=== PATIENT | male | born 1990 | race Caucasian/White ===

== ENCOUNTER 2019-07-18 05:33 | Emergency (ER) | payer BC ==
[~2019-07-18] VITALS: Ht 172.7 cm; Wt 73.0 kg
--- NOTE | 2019-07-18 05:48 | NUR ---
Pt provided urine sample, sent to lab.
--- NOTE | 2019-07-18 05:50 | NUR ---
Dr. Oates at bedside for MSE.
[2019-07-18] MEDS ORDERED: KETOROLAC TROMETHAMINE 30 MG INJ ONE (06:05)
[2019-07-18] MEDS ORDERED: ONDANSETRON 4 MG/2 ML VIAL ONE (06:09)
[2019-07-18] MEDS ORDERED: HYDROMORPHONE 1 MG/1 ML DISP.SYRIN ONE (06:09)
[2019-07-18] MEDS ORDERED: TAMSULOSIN HCL 0.4 MG CAP.SR.24H ONE (06:10)
[2019-07-18] MEDS ORDERED: HYDROMORPHONE 1 MG/1 ML DISP.SYRIN IV ONE (06:15)
[2019-07-18] MEDS ORDERED: IV NORMAL SALINE 1000 ML BAG IV ONE (06:15)
[2019-07-18] MEDS ORDERED: TAMSULOSIN HCL 0.4 MG CAP.SR.24H PO ONE (06:15)
[2019-07-18] MEDS ORDERED: KETOROLAC TROMETHAMINE 15 MG INJ IVP ONE (06:15)
[2019-07-18] MEDS ORDERED: ONDANSETRON 4 MG/2 ML VIAL IV ONE (06:15)
--- NOTE | 2019-07-18 06:25 | NUR ---
Pt out of ER for CT.
[2019-07-18 06:31] LABS: BASOPHILS % (AUTO) 0.4 % (0.0-2.0); EOSINOPHILS # (AUTO) 0.1 K/uL (0.0-0.7); HEMATOCRIT 41.9 % (36.7-47.1); HEMOGLOBIN 14.4 g/dL (12.5-16.3); LYMPHOCYTES # (AUTO) 1.9 K/uL (20.0-40.0); LYMPHOCYTES % (AUTO) 30.4 % (20.5-51.5); MEAN CORPUSCULAR HEMOGLOBIN 30.7 uug (23.8-33.4); MEAN CORPUSCULAR HGB CONC 34 g/dL (32.5-36.3); MEAN CORPUSCULAR VOLUME 89.5 fL (73.0-96.2); MONOCYTES # (AUTO) 0.4 K/uL (2.0-10.0); MONOCYTES % (AUTO) 6.9 % (0.0-11.0); NEUTROPHILS # (AUTO) 3.8 K/uL (1.8-8.9); NEUTROPHILS % (AUTO) 60.3 % (38.5-71.5); PLATELET COUNT (AUTO) 205 K/uL (152-348); RED BLOOD CELL COUNT(AUTO) 4.68 MIL/uL (4.06-5.63); WHITE BLOOD COUNT (AUTO) 6.4 K/uL (3.6-10.2)
--- NOTE | 2019-07-18 06:37 | NUR ---
Pt back to ER from CT.
--- NOTE | 2019-07-18 06:37 | NUR ---
Report given to Cate MARTINEZ dayshift.
[2019-07-18 06:38] LABS: *BILIRUBIN,URIN NEGATIVE (NEGATIVE); *BLOOD, URINE 3+ (NEGATIVE); *CLARITY,URINE CLOUDY (CLEAR); *KETONES,URINE NEGATIVE (NEGATIVE); *UROBILINOGEN,URINE 0.2 E.U./dl (NORMAL); LEUKOCYTE ESTERASE ,URINE NEGATIVE (NEGATIVE); NITRITE, URINE NEGATIVE (NEGATIVE); PH,URINE 5.5 (5.0-8.0); UGLUCOSE NEGATIVE (NEGATIVE)
[2019-07-18 06:39] LABS: BILIRUBIN,DIRECT 0.2 mg/dL (0.0-0.2); BILIRUBIN,TOTAL 0.9 mg/dL (0.2-1.0); CREATININE 1.2 mg/dL (0.6-1.3); POTASSIUM 3.9 mmol/L (3.5-5.1); TOTAL PROTEIN, SERUM 7.4 g/dL (6.4-8.2)
[2019-07-18 06:47] LABS: RBC,URINE TNTC /HPF (0-3)
[2019-07-18 06:48] LABS: BACTERIA,URINE NONE SEEN /HPF (NONE SEEN); MUCUS,URINE FEW /LPF (0-FEW); SQUAMOUS EPITHELIAL CELL,UR FEW /HPF (NONE SEEN); WBC,URINE 0-3 /HPF (0-3)
--- NOTE | 2019-07-18 07:25 | NUR ---
IV removed. Catheter intact and site benign. Pressure and 4x4 gauze applied to site. No bleeding noted. Patient discharged to home in stable conditon. Written and verbal after care instructions given. Patient verbalizes understanding of instructions. pt ambulating with steady gait. per pt will be calling ride share service to get home
[2019-07-18 07:28] VITALS: BP 126/77
== END 2019-07-18 07:27 | disposition home or self-care (01) ==
LOC: ER 05:39
DX: N20.0 Calculus of kidney (principal)
CPT/HCPCS: 36415; 74176; 80048; 80076; 81000; 81001; 83690; 85025; 96374; 96375; 99284; J1170; J1885; J2405; A4663; J7030